=== PATIENT | male | born 1945 | race African-American/Black ===

== ENCOUNTER 2016-08-18 14:55 | Emergency (ER) | payer MEDICARE ==
[2016-08-18 15:26] LABS: Hematocrit 40.7 % (42.0-52.0); Hemoglobin 12.6 gm/dL (13.5-18.0); Mean Cell Volume 76.9 fl (78-100); Mean Corpuscular Hemoglobin 23.8 pg (27-31); Mean Platelet Volume 8.8 fl (6.0-9.5); Neutrophil # 2.7 K/mm3 (1.3-6.0); Neutrophil % 54.9 % (42-75.0); Platelet Count 252 K/mm3 (150-450); Red Blood Count 5.29 M/mm3 (4.7-6.0); Red Cell Distribution Width 16.3 % (11.5-14.0)
[2016-08-18 15:36] LABS: Prothrombin Time (Patient) 11.1 Seconds (9.4-11.4)
[2016-08-18 15:42] LABS: INR 1.07 INR (0.90-1.10); Partial Thrombolplastin Time 28.9 Seconds (24-32)
[2016-08-18 15:47] LABS: Albumin * 3.5 gm/dl (3.4-5.0); Anion Gap 12.8 mmol/L (6.8-13.8); BUN/Creatinine Ratio 12.7 (9.0-21.6); Bilirubin, Total 0.6 mg/dL (0.0-1.1); Calcium * 8.9 mg/dL (7.9-10.9); Carbon Dioxide 29.5 mmol/L (24-32.6); Potassium 4.3 mmol/L (3.4-4.6); Troponin I 0.077 ng/ml (0.00-0.10)
--- OUTSIDE RECORDS SUMMARY | 2016-08-18 16:10 | XMS REPORT | Continuity of Care Document ---
:1945 Author Organization [facility] ([facility]) Address [address] [place] [address] Phone [phone] Care Team Providers Name Role Phone Jose Patel Primary Care Provider [phone] Source Comments This disclosure is being made pursuant to the Care Everywhere program, applicable federal and state laws, and may not contain all informaitonavailable regarding this patient.[facility] ([facility]) Active Allergies and Adverse Reactions No Known Allergies Current Medications Prescription Sig. Disp. Refills Start Date End Date Status potassium chloride 10 Take 10 mEq by mouth Active mEq XR tablet daily. atorvastatin 10 mg Take 10 mg by mouth Active tablet every evening. pantoprazole PO Take by mouth. Active cyanocobalamin Take 1,000 mcg by Active (VITAMIN B-12) 1,000 mouth daily. mcg tablet multivitamin tablet Take 1 tablet by Active mouth daily. cholecalciferol Take 1,000 Units by Active (VITAMIN D3) 1,000 mouth daily. unit capsule ascorbic acid (VITAMIN Take 500 mg by mouth Active C) 500 mg tablet daily. alprostadil (EDEX) 20 Use 20 mcg 4 Each 11 10/09/2015 Active mcg injection intracavernosal as needed. 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 Social History Tobacco Use Types Packs/Day Years Used Date Current Every Day Smoker Cigarettes 0.2 Comments:1 pack per week Last Filed Vital Signs Vital Sign Reading Time Taken Blood Pressure 131/83 10/09/2015 12:53 PM CDT Pulse 80 10/09/2015 12:53 PM CDT Temperature 36.9 C (98.4 F) 10/09/2015 12:53 PM CDT Respiratory Rate - - Height 1.778 m (5' 10") 10/09/2015 12:53 PM CDT Weight 77.111 kg (170 lb) 10/09/2015 12:53 PM CDT Body Mass Index 24.39 10/09/2015 12:53 PM CDT Oxygen Saturation - - Plan of Care Health Maintenance Due Date Last Done Comments Hepatitis B Vaccine (1 of 3 - Primary Series) 1945 Tdap Vaccine 1955 Lipid Disorder Screening 1962 Td Vaccine 1962 Colonoscopy 1994 Prostate Cancer Screening 1994 Zoster Vaccine 2004 Pneumococcal Vaccine (1 of 2 - PCV13) 2009 Influenza Vaccine: Seasonal (#1) 02/01/2016 Results from Last 3 Months Not on file
[2016-08-18 18:59] VITALS: BP 139/91
== END 2016-08-18 18:43 | disposition home or self-care (01) ==
LOC: ER 14:55
DX: R07.9 Chest pain, unspecified (principal)

== ENCOUNTER 2018-04-19 07:00 | Observation (INO) ==
[2018-04-19] MEDS ORDERED: Regadenoson 0.1 MG UNIT IV ONE (08:00)
[2018-04-19] MEDS ORDERED: Regadenoson 0.08 MG/ML SYRG IV ONE (08:00)
[2018-04-19 10:39] LABS: Albumin * 3.4 gm/dl (3.4-5.0); Anion Gap 6.1 mmol/L (6.8-13.8); BUN/Creatinine Ratio 34.1 (9.0-21.6); Bilirubin, Total 0.9 mg/dL (0.0-1.1); Ca. Corrected For Albumin 9.4 mg/dL (8.4-10.2); Calcium * 9.2 mg/dL (7.9-10.9); Carbon Dioxide 35.1 mmol/L (24-32.6); Potassium 4.2 mmol/L (3.4-4.6); Total Protein 7.2 gm/dL (6.2-8.2)
[2018-04-19] MEDS ORDERED: ALBUTEROL SULFATE 2.5 MG/0.5 ML VIAL.NEB IH PRN (11:02)
[2018-04-19] MEDS ORDERED: METOLAZONE 5 MG TABLET PO ONE (11:06)
[2018-04-19] MEDS ORDERED: APIXABAN 5 MG TABLET PO SCH (11:15)
[2018-04-19] MEDS ORDERED: FUROSEMIDE 10 MG/ML VIAL IV ONE (12:15)
[2018-04-19] MEDS: ENALAPRIL MALEATE 5 MG TABLET PO SCH (12:45)
[2018-04-19] MEDS: APIXABAN 2.5 MG TABLET PO SCH ×2 (12:45→21:31)
[2018-04-19] MEDS: CARVEDILOL 6.25 MG TABLET PO SCH ×2 (12:45→21:40)
[2018-04-19] MEDS: ALBUTEROL SULFATE/IPRATROPIUM 3 ML NEBU IH SCH ×3 (14:13→21:51)
[2018-04-19] MEDS ORDERED: DILTIAZEM HCL 5 MG/ML VIAL IV ONE (14:49)
--- NOTE | 2018-04-19 16:25 | PN ---
Subjective - Date and Time Seen Date: 04/19/18 Time: 16:22 Subjective Narrative: Feeling better, he is not short of breath no chest pain and no palpitation Objective - Review of Systems Generalized/Overall Review: Reports: No Symptoms Reported EENTM: Reports: No Symptoms Reported Respiratory: Reports: No Symptoms Reported Cardiac: Reports: No Symptoms Reported Abdominal: Reports: No Symptoms Reported - Vitals Vitals: Last Vital Signs Temp 36.7 C 04/19/18 11:08 Pulse 140 H 04/19/18 15:07 Resp 18 04/19/18 14:21 BP 113/80 04/19/18 15:07 Pulse Ox 97 04/19/18 14:13 - Abnormal Lab Findings Abnormal Lab Findings: Abnormal Lab Results 04/19/18 Range/Units 09:51 Carbon Dioxide 35.1 H (24-32.6) mmol/L Anion Gap 6.1 L (6.8-13.8) mmol/L BUN 43 H D (6-23) mg/dL BUN/Creatinine Ratio 34.1 H (9.0-21.6) AST 51 H (0-48) U/L B-Natriuretic Peptide 3585 H (5-350) pg/mL Assessment/Plan - Problems/Diagnosis (1) Atrial fibrillation Problem: Acute Narrative: He was tachycardic he was given Cardizem 15 mg and this is slow down the heart rate My physical assessment diagnosis and treatment plan is disabled as I have dictated on my history and physical examination
[2018-04-19] MEDS: POTASSIUM CHLORIDE 10 MEQ TABLET.SA PO SCH (16:40)
[2018-04-19] MEDS ORDERED: ROSUVASTATIN CALCIUM 10 MG TABLET PO SCH (21:00)
[2018-04-20 05:50] LABS: Albumin * 2.5 gm/dl (3.4-5.0); Anion Gap 3.2 mmol/L (6.8-13.8); BUN/Creatinine Ratio 40.7 (9.0-21.6); Bilirubin, Total 0.5 mg/dL (0.0-1.1); Ca. Corrected For Albumin 9.5 mg/dL (8.4-10.2); Calcium * 8.6 mg/dL (7.9-10.9); Carbon Dioxide 35.9 mmol/L (24-32.6); Potassium 4.1 mmol/L (3.4-4.6); Total Protein 5.8 gm/dL (6.2-8.2)
[2018-04-20] MEDS: ALBUTEROL SULFATE/IPRATROPIUM 3 ML NEBU IH SCH ×2 (06:05→10:53)
[2018-04-20] MEDS ORDERED: CHOLECALCIFEROL 1,000 UNIT CAPSULE PO SCH (09:00)
[2018-04-20] MEDS ORDERED: CYANOCOBALAMIN 1,000 MCG TABLET PO SCH (09:00)
[2018-04-20] MEDS ORDERED: TIOTROPIUM BROMIDE 5 CAP INHALER IH SCH (09:00)
[2018-04-20] MEDS ORDERED: LORATADINE 10 MG TABLET PO SCH (09:00)
[2018-04-20] MEDS ORDERED: FUROSEMIDE 40 MG TABLET PO SCH (09:00)
[2018-04-20] MEDS ORDERED: ASPIRIN 81 MG TABLET.DR PO SCH (09:00)
[2018-04-20] MEDS: CARVEDILOL 6.25 MG TABLET PO SCH (10:10)
[2018-04-20] MEDS: ENALAPRIL MALEATE 5 MG TABLET PO SCH (10:11)
[2018-04-20] MEDS: APIXABAN 2.5 MG TABLET PO SCH (10:17)
[2018-04-20] MEDS: POTASSIUM CHLORIDE 10 MEQ TABLET.SA PO SCH (10:18)
--- NOTE | 2018-04-20 12:02 | ECHO ---
This report is available in the EMR
--- NOTE | 2018-04-20 13:05 | DS ---
(1) Transient atrial fibrillation Problem: Acute Description of Stay: ADMISSION DATE: 04/19/2018 DISCHARGE DATE: 04/20/2018 HOSPITAL COURSE: The patient was admitted for new onset atrial fibrillation. He had a pharmacologic stress test the AM of 04/19/2018 and shortly after receiving 0.4 mg of Lexiscan (regadenoson), he went into atrial fibrillation. He was admitted to outpatient observation for further management. He spontaneously converted to NSR shortly after admission and he was back to his baseline status the following AM prior to discharge. I discussed with the patient that I believe the regadenoson he received during his stress test caused transient atrial fibrillation as it is a drug known to cause arrthymias. I suspect that his echocardiogram that was completed on 04/19/2019 may not be showing his true cardiac function as it was completed while he was still in atrial fibrillation. I would recommend rechecking a 2D complete echocardiogram in the near future for further evaluation of the patients true heart function. FOLLOW-UP APPOINTMENTS: -Follow-up with PCP next week -Check BMP at or prior to visit NEW OR CHANGED MEDICATIONS: -None DISCONTINUED MEDICATIONS: -None Procedures Performed: none Results and Findings: Lab Pending Results 04/19/18 09:51: Sodium 135, Plasma Sodium 135, Potassium 4.2, Chloride 98, Carbon Dioxide 35.1 H, Anion Gap 6.1 L, BUN 43 H D, Creatinine 1.26, Est GFR (Non-Af Amer) 72, BUN/Creatinine Ratio 34.1 H, Random Glucose 94, Calcium 9.2, Calcium Adj for Albumin 9.4, Total Bilirubin 0.9, AST 51 H, ALT 56, Alkaline Phosphatase 94, B-Natriuretic Peptide 3585 H, Total Protein 7.2, Albumin 3.4 04/20/18 05:27: Sodium 134, Plasma Sodium 134, Potassium 4.1, Chloride 99, Carbon Dioxide 35.9 H, Anion Gap 3.2 L, BUN 61 H, Creatinine 1.50 H, Est GFR (Non-Af Amer) 59 L, BUN/Creatinine Ratio 40.7 H, Random Glucose 104, Calcium 8.6, Calcium Adj for Albumin 9.5, Total Bilirubin 0.5, AST 36, ALT 44, Alkaline Phosphatase 99, B-Natriuretic Peptide 4519 H, Total Protein 5.8 L, Albumin 2.5 L Discharge Location: Home Disposition: Home self-care Condition: Stable Discharge Activity: Activity as tolerated Discharge Diet: Low salt, Resume usual diet Referrals: Maximiliano Foster MD [Primary Care Provider] - Problem Oriented Discharge Instructions to Patient/Family: Chronic Obstructive Pulmonary Disease, [id number], Heart Failure, [id number], Atrial Fibrillation, [id number]-ta-Knge Additional Patient Instructions (free text): -Please make TCM appointment unless prison discharge. Thank you! Jossie @ [phone]. -Follow-up with PCP next week -Check BMP at or prior to visit Follow up with Dr. Foster on 04/25/18 9:30am. Complete Home Medications List: Complete Home Medication List: Cyanocobalamin (Vitamin B-12) [B-12] 2,000 mcg PO DAILY 08/01/14 Aspirin [Aspirin EC] 81 mg PO HS 08/18/16 Cholecalciferol (Vitamin D3) [Vitamin D3] 2,000 unit PO DAILY 08/18/16 Multivitamin [One Daily Essential] 1 ea PO DAILY 08/18/16 Albuterol Sulfate [Proair Hfa] 2 puff IH BID PRN 09/20/17 Albuterol Sulfate/Ipratropium [Duoneb 2.5-0.5MG/3ML Soln] 3 ml IH QID 09/20/17 Cetirizine HCl [Zyrtec] 10 mg PO DAILY 09/20/17 atorvastatin 20 mg tablet 20 mg PO HS tab 03/07/18 oxygen-air delivery systems device See Dose Instructions .ROUTE .MEDSUPPLY #1 03/07/18 potassium chloride ER 10 mEq tablet,extended release 10 meq PO BID #180 tab 04/05/18 furosemide 20 mg tablet 40 mg PO DAILY #90 tab 04/12/18 metolazone 5 mg tablet 5 mg PO DAILY #3 tab 04/12/18 apixaban 2.5 mg tablet 2.5 mg PO BID #30 tab 04/25/18 enalapril maleate 10 mg tablet 10 mg PO DAILY #30 tab 04/25/18 Amb Orders for Discharge: Basic Metabolic Panel Time Frame: 1 Week, Location: Laboratory
[2018-04-20 13:57] VITALS: BP 92/64
[2018-04-20] MEDS ORDERED: APIXABAN 5 MG TABLET PO SCH (21:00)
== END 2018-04-20 13:57 | disposition home or self-care (01) ==
LOC: RAD 07:00 → MS 07:00
PROVIDERS: ADMIT Internal Medicine; ATTEND Internal Medicine
DX: I48.91 Unspecified atrial fibrillation; I50.41 Acute combined systolic (congestive) and diastolic (congestive) heart failure; J96.11 Chronic respiratory failure with hypoxia; E78.5 Hyperlipidemia, unspecified; J44.9 Chronic obstructive pulmonary disease, unspecified; M06.9 Rheumatoid arthritis, unspecified; I10 Essential (primary) hypertension; I27.20 Pulmonary hypertension, unspecified
CPT/HCPCS: 36415; 71010; 71045; 78452; 80053; 83519; 83880; 90662; 93005; 93017; 93306; 94640; 94664; 96374; 96375; A9502; G0378; G0379; J2785